=== PATIENT | male | born 1945 | race Two or more races ===

== ENCOUNTER 2024-05-25 05:50 | Day surgery (SDC) | payer OTHER ==
[~2024-05-25 05:50] MED LIST: LOSARTAN; METFORMIN HCL500 M3
[2024-05-25] MEDS ORDERED: LIDOCAINE HCL 1%/EPINEPHRINE 20ML VIAL IJ ONE (09:37)
[2024-05-25] MEDS ORDERED: BUPIVACAINE HCL/Mpf 0.5% 10ML VIAL ONE (09:37)
[2024-05-25] MEDS ORDERED: ENOXAPARIN SODIUM 40 MG/0.4 ML SYRINGE SUBCUTANEO ONE (09:50)
[2024-05-25] MEDS ORDERED: CEFTRIAXONE SODIUM 2,000 MG VIAL IV ONE (11:15)
[2024-05-25] MEDS ORDERED: METRONIDAZOLE/SODIUM CHLORIDE 500 MG/100 ML PIGGYBACK IV ONE (11:15)
[2024-05-25] MEDS ORDERED: CELEBREX200MG PO (12:54)
[2024-05-25] MEDS ORDERED: POLY119PG PO (12:54)
[2024-05-25] MEDS ORDERED: NEURONTIN300 MG PO (12:54)
[2024-05-25] MEDS ORDERED: PERCOCET 5-3251 EACH PO (12:54)
== END 2024-05-25 17:10 | disposition home or self-care (01) ==
LOC: CIR.AMB 05:50
PROVIDERS: ATTEND Surgery
DX: K40.90 Unilateral inguinal hernia, without obstruction or gangrene, not specified as recurrent (principal); Z91.013 Allergy to seafood; I10 Essential (primary) hypertension; E11.9 Type 2 diabetes mellitus without complications; J45.909 Unspecified asthma, uncomplicated
CPT/HCPCS: 49650; C1781